=== PATIENT | female | born 1945 | race Caucasian/White ===

== ENCOUNTER 2019-10-26 02:15 | Inpatient (IN) | payer MEDICARE, OTHER ==
--- NOTE | 2019-10-26 02:21 | ED Physician Documentation ---
PD HPI ABD PAIN - Stated complaint Stated Complaint: ABD PAIN - History obtained from History obtained from: Patient - History of Present Illness Timing - onset: Enter time (22:30), Today Timing - details: Abrupt onset Pain level now: 3 Quality: Pain Location: All over / everywhere (predominantly right-sided) Improved by: Laying still Worsened by: Moving Associated symptoms: Nausea. No: Fever, Vomiting, Diarrhea, Constipation Similar symptoms before: Has not had sx before Recently seen: Not recently seen - Additional information Additional information: c/o rapid onset abdominal pain with nausea, vomiting. nausea has resolved. pain started while at home at rest approximately 10:30 PM tonight Review of Systems Constitutional: denies: Fever, Chills, Sweats Eyes: reports: Reviewed and negative Ears: reports: Foreign body Nose: reports: Reviewed and negative Throat: reports: Reviewed and negative Cardiac: reports: Reviewed and negative Respiratory: reports: Reviewed and negative GI: reports: Abdominal Pain, Nausea (resolved), Vomiting (resolved) : denies: Dysuria, Frequency Skin: denies: Rash Musculoskeletal: reports: Reviewed and negative Neurologic: reports: Reviewed and negative PD PAST MEDICAL HISTORY - Past Medical History Past Medical History: Yes Cardiovascular: Hypertension, High cholesterol - Past Surgical History General: Hiatal hernia repair - Present Medications Home Medications: Ambulatory Orders Medication Instructions Recorded Confirmed Calcium Carbonate [Tums (Calcium 500 mg PO DAILY 10/26/19 10/26/19 Carbonate 500mg)] Cholecalciferol (Vitamin D3) 2,000 units PO DAILY 10/26/19 10/26/19 [Vitamin D3] Ibuprofen 200 mg PO QPM 10/26/19 10/26/19 Losartan [Cozaar] 50 mg PO DAILY 10/26/19 10/26/19 Simvastatin 40 mg PO DAILY 10/26/19 10/26/19 - Allergies Allergies/Adverse Reactions: Allergies Allergy/AdvReac Type Severity Reaction Status Date / Time No Known Drug Allergies Allergy Verified 10/26/19 02:25 - Living Situation Living Situation: reports: With spouse/s.o. Living Arrangement: reports: At home - Social History Does the pt smoke?: No PD ED PE NORMAL - Vitals Vital signs reviewed: Yes - General General: Alert and oriented X 3, No acute distress, Well developed/nourished - HEENT HEENT: Moist mucous membranes - Neck Neck: Supple, no meningeal sign - Cardiac Cardiac: RRR, No murmur - Respiratory Respiratory: No respiratory distress, Clear bilaterally - Abdomen Abdomen: Soft, Non distended, Other (TTP periumbilicus and RLQ without rebound) - Back Back: No CVA TTP - Derm Derm: Normal color, Warm and dry, No rash - Extremities Extremities: No edema - Neuro Neuro: Alert and oriented X 3 Results - Vitals Vitals: Vital Signs - 24 hr 10/26/19 10/26/19 10/26/19 02:23 03:13 04:30 Temperature 37 C Heart Rate 107 H 106 H 105 H Respiratory 16 16 17 Rate Blood Pressure 181/84 H 145/71 H 133/74 H O2 Saturation 95 99 94 10/26/19 10/26/19 10/26/19 05:30 05:59 06:10 Temperature 37.5 C 37.7 C H Heart Rate 107 H 110 H 122 H Respiratory 18 16 18 Rate Blood Pressure 144/72 H 144/72 H 141/74 H O2 Saturation 94 92 91 L 10/26/19 10/26/19 10/26/19 06:12 06:38 07:01 Temperature 37.5 C Heart Rate 119 H 118 H Respiratory 16 18 Rate Blood Pressure 136/77 H 128/90 H O2 Saturation 95 95 94 10/26/19 10/26/19 07:41 08:30 Temperature 37.4 C Heart Rate 118 H 112 H Respiratory 17 17 Rate Blood Pressure 152/58 H 137/76 H O2 Saturation 93 Oxygen O2 Source Room air Oxygen Flow Rate 2 - Labs Labs: Laboratory Tests 10/26/19 10/26/19 10/26/19 02:47 02:58 02:58 WBC 4.0 L RBC 4.79 Hgb 15.0 Hct 44.9 MCV 93.7 MCH 31.3 H MCHC 33.4 RDW 11.9 L Plt Count 210 MPV 10.4 Neut # (Auto) 3.1 Lymph # (Auto) 0.7 L [place] # (Auto) 0.1 Eos # (Auto) 0.0 Baso # (Auto) 0.0 Absolute Nucleated RBC 0.00 Nucleated RBC % 0.0 Sodium 138 Potassium 3.7 Chloride 101 Carbon Dioxide 25 Anion Gap 12.0 BUN 19 Creatinine 0.6 Estimated GFR (MDRD) 98 Glucose 113 H Calcium 9.9 Total Bilirubin 1.0 AST 24 ALT 16 Alkaline Phosphatase 83 Total Protein 7.5 Albumin 4.6 Globulin 2.9 Albumin/Globulin Ratio 1.6 Lipase 27 Urine Color YELLOW Urine Clarity CLEAR Urine pH 5.5 Ur Specific [place] >=1.030 H Urine Protein NEGATIVE Urine Glucose (UA) NEGATIVE Urine Ketones TRACE Urine Occult Blood NEGATIVE Urine Nitrite NEGATIVE Urine Bilirubin NEGATIVE Urine Urobilinogen 0.2 (NORMAL) Ur Leukocyte Esterase SMALL H Urine RBC None Seen Urine WBC 4-5 Ur Squamous Epith Cells MANY Squamous H Urine Crystals 3-5 Calcium Oxalate Urine Bacteria Rare Urine Mucus Marked Strands Ur Microscopic Review INDICATED Urine Culture Comments NOT INDICATED - Rads (name of study) CT A/P Radiology: Prelim report reviewed, See rad report PD MEDICAL DECISION MAKING - ED course Complexity details: reviewed results, re-evaluated patient, considered differential, d/w patient ED course: CT A/P demonstrates appendicitis. D/W Dr. Redman (surgeon chief surgery), recommends IV zosyn and he will be in ED this morning to evaluate patient. Departure - Departure Disposition: ED Transfer to [facility] Clinical Impression: Appendicitis Condition: Stable
[2019-10-26 03:05] LABS: BASOPHILS % (AUTO) 0.5 %; EOSINOPHILS % (AUTO) 0.8 %; LYMPHOCYTES # (AUTO) 0.7 10^3/uL (1.5-3.5); LYMPHOCYTES % (AUTO) 17.4 %; MEAN CORPUSCULAR HEMOGLOBIN 31.3 pg (27.0-31.0); MEAN CORPUSCULAR HGB CONC 33.4 g/dL (32.0-36.0); MEAN CORPUSCULAR VOLUME 93.7 fL (81.0-99.0); MEAN PLATELET VOLUME 10.4 fL (7.9-10.8); MONOCYTES # (AUTO) 0.1 10^3/uL (0.0-1.0); MONOCYTES % (AUTO) 2.5 %; NEUTROPHILS # (AUTO) 3.1 10^3/uL (1.5-6.6); NEUTROPHILS % (AUTO) 78.8 %; PLT - PLATELET COUNT 210 10^3/uL (130-450); RED BLOOD COUNT 4.79 10^6/uL (4.20-5.40); RED CELL DISTRIBUTION WIDTH 11.9 % (12.0-15.0)
[2019-10-26 03:05] LABS: BILIRUBIN,URINE NEGATIVE (NEGATIVE); GLUCOSE, URINE (UA) NEGATIVE (NEGATIVE); KETONES,URINE (UA) TRACE mg/dL (NEGATIVE); LEUKOCYTE ESTERASE, URINE SMALL (NEGATIVE); NITRITE,URINE NEGATIVE (NEGATIVE); OCCULT BLOOD,URINE NEGATIVE (NEGATIVE); PH,URINE 5.5 PH (5.0-7.5); PROTEIN,URINE NEGATIVE (NEGATIVE); UROBILINOGEN,URINE 0.2 (NORMAL) E.U./dL (NORMAL)
[2019-10-26 03:06] LABS: CLARITY,URINE CLEAR (CLEAR)
[2019-10-26 03:16] LABS: ALBUMIN 4.6 g/dL (3.2-5.5); ALBUMIN/GLOBULIN RATIO 1.6 (1.0-2.2); CALCIUM 9.9 mg/dL (8.5-10.3); CREATININE 0.6 mg/dL (0.4-1.0); TOTAL PROTEIN 7.5 g/dL (6.7-8.2)
[2019-10-26] MEDS ORDERED: IOVERSOL 320 100 ML VIAL IVP ONE ×2 (03:16→03:46)
[2019-10-26 03:18] LABS: BACTERIA,URINE Rare /HPF (None Seen); MUCUS,URINE Marked Strands; RBC,URINE None Seen /HPF (0-5); SQUAMOUS EPITHELIAL CELL,UR MANY Squamous (<= Few)
[2019-10-26 03:19] LABS: CRYSTALS,URINE 3-5 Calcium Oxalate /LPF
--- NOTE | 2019-10-26 04:08 | CT Report ---
Reason: abdominal pain Procedure Date: 10/26/2019 Accession Number: [id number] / [id number] Procedure: CT - Abdomen/Pelvis W CPT Code: Final Report FULL RESULT: EXAM: CT ABDOMEN AND PELVIS EXAM DATE: 10/26/2019 03:43 AM. CLINICAL HISTORY: Abdominal pain. COMPARISONS: None. TECHNIQUE: Routine helical CT imaging was performed through the abdomen and pelvis. IV contrast: 100 mL of Optiray 320. Enteric contrast: No. Reconstructions: Coronal and sagittal. In accordance with CT protocol optimization, one or more of the following dose reduction techniques were utilized for this exam: automated exposure control, adjustment of mA and/or KV based on patient size, or use of iterative reconstructive technique. FINDINGS: Lung Bases: Right basilar atelectasis. Small hiatal hernia. Liver: Likely hemangiomas at the dome and in the posterior right lobe. Gallbladder/Bile Ducts: Unremarkable. Spleen: Normal. Pancreas: Normal. Adrenal Glands: Normal. Kidneys: Normal. No masses or hydronephrosis. Peritoneal Cavity/Bowel: Inflammation in the right lower quadrant, with dilation of the tip of the appendix, measuring 13 mm. No definite perforation or abscess formation. No bowel obstruction. Colonic diverticulosis. Pelvic Organs: Small amount of free fluid in the pelvis. 2.8 cm left adnexal cyst. No pelvic adenopathy. Vasculature: No aneurysms or other significant abnormality. Bones: Degenerative changes. Other: None. IMPRESSION: Acute appendicitis, predominantly at the tip. No perforation or abscess formation. 2.9 cm left adnexal cyst, likely ovarian in origin. Consider further evaluation with pelvic ultrasound when the acute episode has resolved. RADIA
[2019-10-26] MEDS ORDERED: PIPERACILLIN/TAZOBACTAM 3.375 GM in SODIUM CHLORIDE 0.9% MINIBAG 100 ML IV STA (05:47)
[2019-10-26] MEDS ORDERED: KETOROLAC 30 MG/ML VIAL IVP STA (08:07)
--- NOTE | 2019-10-26 08:21 | CONSULTATION NOTE ---
Referring Provider Name of Referring Provider:: Dr. Juarez Consult Date: 10/26/19 Chief Complaint - Chief Complaint Chief Complaint: abd pain History of Present Illness - Admitted From Admitted From:: ER - History Obtained From Records Reviewed: yes History obtained from: pt Exam Limitations: none - History of Present Illness HPI Comment/Other: 74 yo female with sudden onset of severe generalized sharp stabbing abd pain, worse on the right side, which began at 2230 hrs yesterday evening. There was nausea but no vomiting, no fever, chills, change in bowel habits, melena, hematochezia, respiratory or urinary sx. She believes she may have had a milder episode approx 5 months ago which resolved spontaneously over 48 hours. Pain is better when she lies still. No recent wt loss. +FH CRC in father in his 80s. Her most recent colonoscopy was approximately one year ago where diverticulosis was noted. Her pain has improved somewhat since arrival in the ER at approx 0200, and now is described as a dull ache. Evaluation in the ER was notable for nl CBC, CMP, and UA and abd/pelvic CT showing an enlarged, inflamed distal appendix measuring 13 mm in size, along with a 2.7 cm left cystic adnexal mass for which f/u US was recommended. Surgical consultation was requested. 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 HEENT: reports: Cataracts, Other (partial corneal transplants OU) - Family & Social History Family History Comment/Other: Colon cancer in father in his 80s - Substance History Use: Uses substance without health or social issues: Alcohol (2 glasses wine per night) - POLST Patient has POLST: No Meds/Allgy - Home Medications Home Medications: Ambulatory Orders Medication Instructions Recorded Confirmed Calcium Carbonate [Tums (Calcium 500 mg PO DAILY 10/26/19 10/26/19 Carbonate 500mg)] Cholecalciferol (Vitamin D3) 2,000 units PO DAILY 10/26/19 10/26/19 [Vitamin D3] Ibuprofen 200 mg PO QPM 10/26/19 10/26/19 Losartan [Cozaar] 50 mg PO DAILY 10/26/19 10/26/19 Simvastatin 40 mg PO DAILY 10/26/19 10/26/19 - Allergies Allergies/Adverse Reactions: Allergies Allergy/AdvReac Type Severity Reaction Status Date / Time No Known Drug Allergies Allergy Verified 10/26/19 02:25 Review of Systems - Constitutional Constitutional: denies: Fever, Chills, Weight loss - Cardiovascular Cariovascular: denies: Palpitations, Chest pain - Respiratory Respiratory: denies: Cough - Gastrointestinal Gastrointestinal: reports: Abdominal pain, Nausea, Poor appetite. denies: Constipation, Diarrhea, Change in bowel habits, Rectal bleeding, Black stools, Bloody stools, Vomiting, Bile emesis, Coffee grounds emesis - Genitourinary Genitourinary: denies: Dysuria - Hematologic/Lymphatic Hematologic/Lymphatic: denies: Bruising, Blood clots, Bleeding tendencies - All Other Systems All Other Systems: reports: Reviewed and negative (or covered in HPI/PMH) Exam - Vital Signs Reviewed Vital Signs: Yes Vital Signs: Vital Signs x48h Temp Pulse Resp BP Pulse Ox 10/26/19 07:41 37.4 C 118 H 17 152/58 H 10/26/19 07:01 118 H 18 128/90 H 94 10/26/19 06:38 37.5 C 119 H 16 136/77 H 95 10/26/19 06:12 95 10/26/19 06:10 37.7 C H 122 H 18 141/74 H 91 L 10/26/19 05:59 37.5 C 110 H 16 144/72 H 92 10/26/19 05:30 107 H 18 144/72 H 94 10/26/19 04:30 105 H 17 133/74 H 94 10/26/19 03:13 106 H 16 145/71 H 99 10/26/19 02:23 37 C 107 H 16 181/84 H 95 - Physical Exam General Appearance: positive: Alert, Moderate distress Eyes Bilateral: positive: No scleral icterus ENT: positive: Dry mucous membranes Neck: positive: Nml inspection, Thyroid nml, No JVD, Trachea midline, Other (carotid upstrokes appear normal). negative: Lymphadenopathy (R), Lymphadenopathy (L) Respiratory: positive: Chest non-tender, No respiratory distress, Rales (faint right base) Cardiovascular: positive: Regular rate & rhythm, Tachycardia, Systolic murmur. negative: JVD present, Gallop/S3, Gallop/S4 Abdomen: positive: Tenderness (Diffuse tenderness in RUQ, RLQ, LLQ with peritoneal signs, maximal in RLQ), Guarding, Rebound, Abnml bowel sounds ( hypoactive), Other (laparoscopic surgical scars). negative: Hepatomegaly, Splenomegaly, Mass Back: positive: Nml inspection. negative: CVA tenderness (R), CVA tenderness (L) Skin: positive: Color nml, No rash, Warm, Dry Extremities: positive: Non-tender, Nml appearance, No pedal edema. negative: Calf tenderness Neurologic/Psychiatric: positive: Oriented x3 Conclusion and Plan - Lab Results Laboratory Results 10/26/19 02:58: Sodium 138, Potassium 3.7, Chloride 101, Carbon Dioxide 25, Anion Gap 12.0, BUN 19, Creatinine 0.6, Estimated GFR (MDRD) 98, Glucose 113 H, Calcium 9.9, Total Bilirubin 1.0, AST 24, ALT 16, Alkaline Phosphatase 83, Total Protein 7.5, Albumin 4.6, Globulin 2.9, Albumin/Globulin Ratio 1.6, Lipase 27 10/26/19 02:58: WBC 4.0 L, RBC 4.79, Hgb 15.0, Hct 44.9, MCV 93.7, MCH 31.3 H, MCHC 33.4, RDW 11.9 L, Plt Count 210, MPV 10.4, Neut # (Auto) 3.1, Lymph # (Auto) 0.7 L, [place] # (Auto) 0.1, Eos # (Auto) 0.0, Baso # (Auto) 0.0, Absolute Nucleated RBC 0.00, Nucleated RBC % 0.0 10/26/19 02:47: Urine Color YELLOW, Urine Clarity CLEAR, Urine pH 5.5, Ur Specific [place] >=1.030 H, Urine Protein NEGATIVE, Urine Glucose (UA) NEGATIVE, Urine Ketones TRACE, Urine Occult Blood NEGATIVE, Urine Nitrite NEGATIVE, Urine Bilirubin NEGATIVE, Urine Urobilinogen 0.2 (NORMAL), Ur Leukocyte Esterase SMALL H, Urine RBC None Seen, Urine WBC 4-5, Ur Squamous Epith Cells MANY Squamous H, Urine Crystals 3-5 Calcium Oxalate, Urine Bacteria Rare, Urine Mucus Marked Strands, Ur Microscopic Review INDICATED, Urine Culture Comments NOT INDICATED - Diagnostic Imaging Results Diagnostic Imaging Results: positive: Final report reviewed, Read independently Diagnostic Imaging Results Comments: See HPI - EKG Results EKG Interpreted Independently: No EKG Findings: Sinus tachycardia - Diagnosis Diagnosis: 1. Acute abdomen, likely due to appendicitis; clinical picture concerning for complicated disease despite like of findings on CT to suggest this. 2. New systolic heart murmur, concerning for aortic stenosis. 3. Sinus tachycardia, likely due to pain, poss sepsis, vol depletion - Plan Plan: Initiate therapy with broad spectrum antibiotic therapy, IVF bolus and continuous infusion; IV analgesia, CXR, hospitalist consultation, consider echocardiogram to assess for aortic stenosis. Proceed with laparoscopic appendectomy after medical clearance and adequate resuscitation has been accomplished. Discussed in detail with pt, who agrees with this plan. Dr. Duran will be performing the surgery after the above has occured.
[2019-10-26] MEDS ORDERED: LACTATED RINGERS 500 ML IV SCH (09:00)
[2019-10-26] MEDS ORDERED: LACTATED RINGERS 1,000 ML IV SCH (09:00)
--- NOTE | 2019-10-26 09:15 | XRAY Report ---
Reason: pre op abd pain Procedure Date: 10/26/2019 Accession Number: [id number] / [id number] Procedure: XR - Chest 2 View X-Ray CPT Code: 86407 Final Report FULL RESULT: EXAM: CHEST RADIOGRAPHY EXAM DATE: 10/26/2019 09:06 AM. CLINICAL HISTORY: Pre op abd pain. COMPARISON: None. TECHNIQUE: 2 views. FINDINGS: Lungs/Pleura: Lung volumes are low. Minimal bibasal opacity probably atelectasis. No focal pulmonary consolidation, significant pleural effusion, or evidence of pneumothorax. Mediastinum: Heart size is normal. Mild to tortuous, calcified aorta. Other: Chronic appearing mild lower thoracic compression deformity. IMPRESSION: No convincing acute cardiopulmonary abnormality. RADIA
--- NOTE | 2019-10-26 10:06 | CONSULTATION NOTE ---
Referring Provider Name of Referring Provider:: Dr. Best Redman Consult Date: 10/26/19 Chief Complaint - Chief Complaint Chief Complaint: Abdominal pain History of Present Illness - Admitted From Admitted From:: Home - History Obtained From Records Reviewed: Yes History obtained from: Patient, Spouse, General Surgery, EMR - History of Present Illness HPI Comment/Other: This is a 74-year-old female with a past medical history significant for hypertension hyperlipidemia who presents to emergency department complaining of right lower quadrant abdominal pain. She had associated nausea but no vomiting. She also denied any fevers or chills. She was found to have appendicitis on CT of the abdomen and pelvis and general surgery was consulted for intervention. On their exam, she is found to have a cardiac murmur and medicine was consulted for preop evaluation. Patient reports she has no prior cardiac history to her knowledge. She is never been told that she had a murmur in the past. She denies any history of heart failure, coronary artery disease, arrhythmias. She states she is relatively active and is able to walk up a flight of stairs without chest pain or dyspnea. She currently reports no chest pain or dyspnea but does continue to have some right lower quadrant abdominal pain. Her only medications are losartan and simvastatin. 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 Social History Notes: Lives with her at home. She did smoke in the past but quit over 40 years ago. She drinks 2 glasses of white wine a day. - Substance History Use: Uses substance without health or social issues: Alcohol (2 glasses wine per night) - POLST Patient has POLST: No Meds/Allgy - Home Medications Home Medications: Ambulatory Orders Medication Instructions Recorded Confirmed Calcium Carbonate [Tums (Calcium 500 mg PO DAILY 10/26/19 10/26/19 Carbonate 500mg)] Cholecalciferol (Vitamin D3) 2,000 units PO DAILY 10/26/19 10/26/19 [Vitamin D3] Ibuprofen 200 mg PO QPM 10/26/19 10/26/19 Losartan [Cozaar] 50 mg PO DAILY 10/26/19 10/26/19 Simvastatin 40 mg PO DAILY 10/26/19 10/26/19 - Allergies Allergies/Adverse Reactions: Allergies Allergy/AdvReac Type Severity Reaction Status Date / Time No Known Drug Allergies Allergy Verified 10/26/19 02:25 Review of Systems - Constitutional Constitutional: reports: Poor appetite. denies: Fever, Chills - Cardiovascular Cariovascular: denies: Palpitations, Chest pain, Exertional dyspnea, Decr. exercise tolerance - Respiratory Respiratory: denies: SOB at rest, SOB with exertion - Gastrointestinal Gastrointestinal: reports: Abdominal pain, Nausea. denies: Vomiting Exam - Vital Signs Reviewed Vital Signs: Yes Vital Signs: Vital Signs x48h Temp Pulse Resp BP Pulse Ox 10/26/19 09:30 108 H 16 142/74 H 93 10/26/19 08:30 112 H 17 137/76 H 93 10/26/19 07:41 37.4 C 118 H 17 152/58 H 10/26/19 07:01 118 H 18 128/90 H 94 10/26/19 06:38 37.5 C 119 H 16 136/77 H 95 10/26/19 06:12 95 10/26/19 06:10 37.7 C H 122 H 18 141/74 H 91 L 10/26/19 05:59 37.5 C 110 H 16 144/72 H 92 10/26/19 05:30 107 H 18 144/72 H 94 10/26/19 04:30 105 H 17 133/74 H 94 10/26/19 03:13 106 H 16 145/71 H 99 10/26/19 02:23 37 C 107 H 16 181/84 H 95 - Physical Exam General Appearance: positive: No acute distress, Alert Eyes Bilateral: positive: Normal inspection, Conjunctivae nml ENT: positive: ENT inspection nml Neck: positive: Nml inspection Respiratory: positive: No respiratory distress. negative: Wheezes, Rales, Rhonchi Cardiovascular: positive: Tachycardia, Systolic murmur. negative: Irregularly irregular, Bradycardia Abdomen: positive: Tenderness (Right lower quadrant most prominently but also diffusely.), Guarding. negative: Non-tender Skin: positive: No rash, Warm, Dry Extremities: positive: Full ROM, No pedal edema Neurologic/Psychiatric: positive: Oriented x3. negative: Disoriented to person, Disoriented to place, Disoriented to time Conclusion/Plan - Diagnosis Diagnosis: 1) Preoperative evaluation. 2) Cardiac murmur. 3) Appendictis - Plan Plan: She appears septic from her appendicitis and surgery appears to be warranted at the moment. It is reasonable to obtain an echocardiogram prior to surgery to evaluate for aortic stenosis given her cardiac murmur on exam. I have called the field service technician poultry and they will be obtaining a stat echocardiogram. If she does have significant aortic stenosis, the decision was made by general surgery and anesthesia whether to proceed with intervention or transfer to a higher level of care. She is otherwise optimized from medical aspect for intervention. Her EKG is without ischemic changes and she is able to function greater than 4 METS. Her Gonzalez risk score for a perioperative cardiac event is 0.1%. She does appear dry on exam and further hydration with IV fluids is recommended. Agree with IV antibiotics for appendicitis. - Lab Results Lab results reviewed: Yes Fish Bones: 10/26/19 02:58 10/26/19 02:58 - Diagnostic Imaging Results Diagnostic Imaging Results: positive: Final report reviewed - EKG Results EKG Interpreted Independently: Yes EKG Findings: EKG shows sinus tachycardia without any obvious ST segment changes.
--- NOTE | 2019-10-26 11:27 | ANESTHESIA ---
Pre-Anesthesia VS, & Labs - Diagnosis Diagnosis 1) Preoperative valuation 2) Cardiac murmur 3) Appendictis - Procedure Lap appy Vital Signs: Temp Pulse Resp BP Pulse Ox 37.4 C 109 H 16 140/59 H 92 10/26/19 07:41 10/26/19 10:30 10/26/19 10:30 10/26/19 10:30 10/26/19 10:30 Height 5 ft 1 in Weight (kg) 64.41 kg Body Mass Index 26.8 - NPO >8 hours - Is Patient ?: Not Applicable - Lab Results Current Lab Results: Laboratory Tests 10/26/19 02:58: Sodium 138, Potassium 3.7, Chloride 101, Carbon Dioxide 25, Anion Gap 12.0, BUN 19, Creatinine 0.6, Estimated GFR (MDRD) 98, Glucose 113 H, Calcium 9.9, Total Bilirubin 1.0, AST 24, ALT 16, Alkaline Phosphatase 83, Total Protein 7.5, Albumin 4.6, Globulin 2.9, Albumin/Globulin Ratio 1.6, Lipase 27 10/26/19 02:58: WBC 4.0 L, RBC 4.79, Hgb 15.0, Hct 44.9, MCV 93.7, MCH 31.3 H, MCHC 33.4, RDW 11.9 L, Plt Count 210, MPV 10.4, Neut # (Auto) 3.1, Lymph # (Auto) 0.7 L, [place] # (Auto) 0.1, Eos # (Auto) 0.0, Baso # (Auto) 0.0, Absolute Nucleated RBC 0.00, Nucleated RBC % 0.0 Lab results reviewed: Yes Fish Bones: 10/26/19 02:58 10/26/19 02:58 Home Medications and Allergies Home Medications: Ambulatory Orders Calcium Carbonate [Tums (Calcium Carbonate 500mg)] 500 mg PO DAILY 10/26/19 Cholecalciferol (Vitamin D3) [Vitamin D3] 2,000 units PO DAILY 10/26/19 Ibuprofen 200 mg PO QPM 10/26/19 Losartan [Cozaar] 50 mg PO DAILY 10/26/19 Simvastatin 40 mg PO DAILY 10/26/19 Active Medications Lactated Ringer's (Lr) 500 mls @ 0 mls/hr IV .Q0M AYUSH Last Infusion: 10/26/19 09:55 Dose: Infused Calcium Carbonate [Tums (Calcium Carbonate 500mg)] 500 mg PO DAILY 10/26/19 Cholecalciferol (Vitamin D3) [Vitamin D3] 2,000 units PO DAILY 10/26/19 Ibuprofen 200 mg PO QPM 10/26/19 Losartan [Cozaar] 50 mg PO DAILY 10/26/19 Simvastatin 40 mg PO DAILY 10/26/19 Allergies/Adverse Reactions: Allergies Allergy/AdvReac Type Severity Reaction Status Date / Time No Known Drug Allergies Allergy Verified 10/26/19 02:25 Anes History & Medical History - Anesthetic History Anesthesia Complications: reports: No previous complications Family history of Anesthesia Complications: Denies Family history of Malignant Hyperthermia: Denies - Medical History Cardiovascular: reports: Hypertension, High cholesterol, Murmur Pulmonary: reports: None Gastrointestinal: reports: Hiatal hernia (Hiatal hernia repair two years ago), Colon polyps, Other (colonoscopy in 2019 showing tics) Urinary: reports: None Neuro: reports: None Musculoskeletal: reports: None Endocrine/Autoimmune: reports: None Blood Disorders: reports: None Skin: reports: None Smoking Status: Former smoker Psychosocial: reports: No issues indicated - Surgical History General: Hiatal hernia repair Eyes Ears Nose Throat (EENT): Cataracts, Other (partial corneal transplants OU) Gynecologic: Tubal ligation Exam General: Alert, Oriented x3, Cooperative, No acute distress Dental: TMJ Mouth Opening: Greater than 4 Fingerbreadths Neck Mobility: Normal Mallampati classification: I Thyromental Distance: greater than 6 cm Neurological: Normal speech Mental/Cognitive Status: Alert/Oriented X3 Cognitive Status: Within normal limits Plan Anesthesia Type: General Consent for Procedure(s) Verified and Reviewed: Yes Code Status: Attempt Resuscitation ASA classification: 2-Mild systemic disease Is this case an emergency?: Yes
[2019-10-26] MEDS ORDERED: LACTATED RINGERS 1,000 ML IV ONE (11:30)
[2019-10-26] MEDS ORDERED: BUPIVACAINE 0.5% PF 30 ML VIAL ONE (11:47)
[2019-10-26] MEDS ORDERED: LIDOCAINE 1%-EPI 1:100000 20 ML MDV ONE (11:47)
[2019-10-26] MEDS ORDERED: PIPERACILLIN/TAZOBACTAM 3.375 GM in SODIUM CHLORIDE 0.9% MINIBAG 100 ML IV ONE (12:22)
[2019-10-26] MEDS ORDERED: BUPIVACAINE 0.5% PF 30 ML VIAL SUBQ ONE ×2 (12:49)
[2019-10-26] MEDS ORDERED: LIDOCAINE 1%-EPI 1:100000 30 ML MDV SUBQ ONE ×2 (12:49)
--- NOTE | 2019-10-26 13:08 | OPERATIVE REPORT ---
Operative Report - General Planned Procedure: Laparoscopic appendectomy Pre-Op Diagnosis: Perforated appendicitis with peritonitis Procedure Performed: Laparoscopic appendectomy with drain placement Post Op Diagnosis: Perforated appendicitis with peritonitis - Procedure Note Primary Surgeon: Roger Anesthesia Provider: CARLOS Aguirre Anesthesia Technique: General ET tube, Local Pathology: Appendix to pathology in formalin IV Fluids (mL): 900 Estimated Blood Loss (mL): 20 Drain/Tube Type: Hardeep drain (19 F Hardeep drain in the right pericolic gutter) Indications: Acute appendicitis Findings: Right lower quadrant phlegmon with palmer pus within the abdominal cavity and around the cecum Complications: None apparent - Other Other Information/Narrative: After obtaining informed consent, the patient is brought to the operating room and placed in the supine position on the operating table. Following successful induction of general endotracheal anesthesia, appropriate padding of all bony prominences, and placement of appropriate monitors, the abdomen was prepped and draped in the standard surgical fashion. A timeout was held per scope protocol. All elements of the surgical safety checklist were followed before, during, and after the procedure. Following infiltration with local anesthetic to create a field block, an incisi on was created inferior to the umbilicus and carried down through the skin and subcutaneous tissue to reveal the fascia below. 2-0 Vicryl retention sutures were placed on either side of the midline and the abdomen was entered under direct vision using a 15 blade scalpel. A 10 mm blunt Ibrahim balloon trocar was placed in the abdominal cavity and it was insufflated to 15 mmHg pressure. The patient was placed in Trendelenburg position with the left side rotated toward the floor. The camera was placed in the abdominal cavity and we immediately visualized the cecum in the right lower quadrant. Palmer pus was noted in the right pericolic gutter. The appendix was identified in the retrocecal position with an associated phlegmon and gross purulence around the appendix and tracking up and down the right pericolic gutter. The appendix was grasped and elevated revealing its attachment to the cecum. The mesentery was notably thickened and the wall of the appendix appeared necrotic. A window was created in the mesoappendix at this location. A laparoscopic stapling device was used to ligate the appendix and liberated from its attachment to the cecum. An additional load of the device were used to divide its mesentery.The appendix was placed in an Endo Catch bag and removed via the umbilical port with a camera in the epigastric position. The camera was replaced in the operative site e xamined. It was irrigated with warm saline solution and aspirated free of all fluid and particulate matter. A 19 F Hardeep drain was placed in the necrotic omental pocket and laced into the right pericolic gutter to be brought out in the right upper quadrant. The was sewn into place. The table was flattened and the abdomen evaluated once again. The trochars were removed under direct vision and abdomen was desufflated. The umbilical incision was closed with interrupted Vicryl suture and Monocryl stitches were placed in the skin. All sponge, needles, and instrument counts were correct at the conclusion of the case. The patient was allowed to wake from anesthesia without difficulty and taken to the postanesthesia care unit in good condition.
[2019-10-26] MEDS ORDERED: ONDANSETRON 4 MG/2 ML VIAL IVP PRN (13:16)
[2019-10-26] MEDS ORDERED: SODIUM CHLORIDE FLUSH 0.9% 10 ML SYRINGE IVP PRN (13:16)
[2019-10-26] MEDS ORDERED: METOCLOPRAMIDE 10 MG/2 ML VIAL IVP PRN (13:16)
[2019-10-26] MEDS ORDERED: HYDROmorphone PCA 20MG/100ML IV PRN (13:34)
[2019-10-26] MEDS: ACETAMINOPHEN 1,000 MG/100 ML 100 ML IV SCH ×2 (14:08→20:05)
[2019-10-26] MEDS: LACTATED RINGERS 1,000 ML IV SCH ×2 (14:08→23:20)
[2019-10-26] MEDS: PANTOPRAZOLE 40 MG VIAL IVP SCH (14:33)
[2019-10-26] MEDS: metroNIDAZOLE 500 MG/100 ML 500 MG/100 ML BAG IV SCH ×2 (14:33→21:33)
[2019-10-26] MEDS ORDERED: SODIUM CHLORIDE FLUSH 0.9% 10 ML SYRINGE IVP SCH (17:00)
[2019-10-26] MEDS: PIPERACILLIN/TAZOBACTAM 3.375 GM in SODIUM CHLORIDE 0.9% MINIBAG 100 ML IV SCH (18:26)
[2019-10-26] MEDS: SODIUM CHLORIDE FLUSH 0.9% 10 ML SYRINGE IVP SCH (18:26)
[2019-10-27] MEDS: PIPERACILLIN/TAZOBACTAM 3.375 GM in SODIUM CHLORIDE 0.9% MINIBAG 100 ML IV SCH ×5 (00:17→23:47)
[2019-10-27] MEDS: SODIUM CHLORIDE FLUSH 0.9% 10 ML SYRINGE IVP SCH ×4 (00:18→23:56)
[2019-10-27] MEDS: KETOROLAC 15 MG/ML VIAL IVP PRN ×4 (00:18→18:58)
[2019-10-27] MEDS: LACTATED RINGERS 1,000 ML IV SCH ×3 (01:31→23:46)
[2019-10-27] MEDS: ACETAMINOPHEN 1,000 MG/100 ML 100 ML IV SCH ×4 (01:38→20:17)
[2019-10-27 05:17] LABS: BASOPHILS % (AUTO) 0.3 %; EOSINOPHILS % (AUTO) 0.3 %; HGB - HEMOGLOBIN 11.4 g/dL (12.0-16.0); LYMPHOCYTES # (AUTO) 1.2 10^3/uL (1.5-3.5); LYMPHOCYTES % (AUTO) 15.8 %; MEAN CORPUSCULAR HEMOGLOBIN 31.6 pg (27.0-31.0); MEAN CORPUSCULAR HGB CONC 33.4 g/dL (32.0-36.0); MEAN CORPUSCULAR VOLUME 94.5 fL (81.0-99.0); MEAN PLATELET VOLUME 10.6 fL (7.9-10.8); MONOCYTES # (AUTO) 0.3 10^3/uL (0.0-1.0); MONOCYTES % (AUTO) 3.9 %; NEUTROPHILS # (AUTO) 6.1 10^3/uL (1.5-6.6); NEUTROPHILS % (AUTO) 79.3 %; PLT - PLATELET COUNT 158 10^3/uL (130-450); RED BLOOD COUNT 3.61 10^6/uL (4.20-5.40); RED CELL DISTRIBUTION WIDTH 12.3 % (12.0-15.0); WHITE BLOOD COUNT 7.7 x10^3/uL (4.8-10.8)
[2019-10-27 05:27] LABS: ALBUMIN 3.2 g/dL (3.2-5.5); ALBUMIN/GLOBULIN RATIO 1.3 (1.0-2.2); BILIRUBIN,TOTAL 0.8 mg/dL (0.2-1.0); CALCIUM 8.3 mg/dL (8.5-10.3); CREATININE 0.6 mg/dL (0.4-1.0); TOTAL PROTEIN 5.6 g/dL (6.7-8.2)
[2019-10-27] MEDS: metroNIDAZOLE 500 MG/100 ML 500 MG/100 ML BAG IV SCH ×3 (05:52→21:09)
[2019-10-27] MEDS: SODIUM CHLORIDE FLUSH 0.9% 10 ML SYRINGE IVP PRN ×2 (05:56→12:24)
[2019-10-27] MEDS: PANTOPRAZOLE 40 MG VIAL IVP SCH (05:57)
[2019-10-27] MEDS: ENOXAPARIN 40 MG/0.4 ML SYRINGE SUBQ SCH (09:22)
--- NOTE | 2019-10-27 14:25 | PROVIDER PROGRESS NOTE ---
Subjective - General Admit Date: 10/26/19 Procedure Date: 10/26/19 Post Op Days: 1 Procedure Performed: Laparoscopic Appendectomy with drain placement - Review of Systems Wound/Incisions: positive: Healing well Drain Type: Hardeep Drain Output Description: approx 60 ccs since OR - cloudy and sanguinous General: positive: Fever, Appetite. negative: Malaise, Chills HEENT: positive: No symptoms Pulmonary: positive: No symptoms, Pleuritic chest pain Gastrointestinal: negative: Nausea, Vomiting Genitourinary: positive: No symptoms Musculoskeletal: positive: No symptoms Skin: positive: No symptoms All Other Systems: positive: Reviewed and negative (or covered in HPI/PMH) Objective - Patient Data Vital Signs: Vital Signs x48h Temp Pulse Resp BP Pulse Ox 10/27/19 08:05 37.1 C 91 18 133/65 H 92 Weight: Weight 10/25/19 10/26/19 10/27/19 23:59 23:59 23:59 Weight (kg) 64.41 kg Intake & Output: Intake and Output Totals x24h 10/25/19 10/26/19 10/27/19 23:59 23:59 23:59 Intake Total 1490 4550 Output Total 290 90 Balance 1200 4460 - Lab Results Lab Results: 10/27/19 05:00 10/27/19 05:00 Other Lab Results: Lab Results x24hrs 10/27/19 10/27/19 Range/Units 05:00 05:00 WBC 7.7 (4.8-10.8) x10^3/uL RBC 3.61 L (4.20-5.40) 10^6/uL Hgb 11.4 L (12.0-16.0) g/dL Hct 34.1 L (37.0-47.0) % MCV 94.5 (81.0-99.0) fL MCH 31.6 H (27.0-31.0) pg MCHC 33.4 (32.0-36.0) g/dL RDW 12.3 (12.0-15.0) % Plt Count 158 (130-450) 10^3/uL MPV 10.6 (7.9-10.8) fL Neut # (Auto) 6.1 (1.5-6.6) 10^3/uL Lymph # (Auto) 1.2 L (1.5-3.5) 10^3/uL Rutherford # (Auto) 0.3 (0.0-1.0) 10^3/uL Eos # (Auto) 0.0 (0.0-0.7) 10^3/uL Baso # (Auto) 0.0 (0.0-0.1) 10^3/uL Absolute Nucleated RBC 0.00 x10^3/uL Nucleated RBC % 0.0 /100WBC Sodium 137 (135-145) mmol/L Potassium 3.4 L (3.5-5.0) mmol/L Chloride 104 (101-111) mmol/L Carbon Dioxide 26 (21-32) mmol/L Anion Gap 7.0 (6-13) BUN 16 (6-20) mg/dL Creatinine 0.6 (0.4-1.0) mg/dL Estimated GFR (MDRD) 98 (>89) Glucose 112 H (70-100) mg/dL Calcium 8.3 L (8.5-10.3) mg/dL Total Bilirubin 0.8 (0.2-1.0) mg/dL AST 18 (10-42) IU/L ALT 16 (10-60) IU/L Alkaline Phosphatase 53 (42-121) IU/L Total Protein 5.6 L (6.7-8.2) g/dL Albumin 3.2 (3.2-5.5) g/dL Globulin 2.4 (2.1-4.2) g/dL Albumin/Globulin Ratio 1.3 (1.0-2.2) - Current Medications Current Medications: Current Medications Generic Name Dose Route Start Last Admin Trade Name Taqueriaq PRN Reason Stop Dose Admin Enoxaparin Sodium 40 mg 10/27/19 09:00 10/27/19 09:22 Lovenox SUBQ 40 mg DAILY AYUSH Administration Lactated Ringer's 1,000 mls @ 125 mls/hr 10/26/19 14:00 10/27/19 11:16 Lr IV 125 mls/hr .Q8H AYUSH Administration Metronidazole 500 mg in 100 mls @ 100 mls/hr 10/26/19 14:00 10/27/19 14:14 Flagyl 500 Mg/100 Ml IV 100 mls/hr Q8HR AYUSH Administration Acetaminophen 100 mls @ 400 mls/hr 10/26/19 14:00 10/27/19 14:10 Ofirmev IV Infused Q6H AYUSH Infusion Piperacillin Sod/Tazobactam 100 mls @ 200 mls/hr 10/26/19 18:00 10/27/19 13:14 Sod 3.375 gm/ Sodium Chloride IV Infused Q6HR AYUSH Infusion Ketorolac Tromethamine 15 mg 10/26/19 13:16 10/27/19 12:23 Toradol Inj (15mg) IVP 10/31/19 13:15 15 mg Q6H PRN Administration PAIN Pantoprazole Sodium 40 mg 10/26/19 14:00 10/27/19 05:57 Protonix IVP 40 mg QDAC AYUSH Administration Sodium Chloride 10 ml 10/26/19 17:00 10/27/19 12:43 Normal Saline Flush 0.9% IVP Not Given 0100,0900,1700 AYUSH Sodium Chloride 10 ml 10/26/19 13:12 10/27/19 12:24 Normal Saline Flush 0.9% IVP 10 ml PRN PRN Administration NEEDED PER PROVIDER ORDERS ABX Reporting Has patient been on IV antibiotics over the past 48 hours?: Yes Impression/Plan - Problem List Problem List: Continue IV antibiotic. Advance diet Ambulate in the halls Recheck labs on Monday
[2019-10-27] MEDS ORDERED: oxyCODONE 5 MG TABLET PO PRN (14:37)
--- NOTE | 2019-10-27 16:16 | PHARMACY PROGRESS NOTE ---
- Best Possible Medication History Admit Date and Time: 10/26/19 1312 Processed by: Pharmacy Medication History completed: Yes Patient Interview: Completed Secondary Source(s): Pharmacy records, Insurance records As the person ultimately responsible for medication therapy, providers are able to order a medication from an existing home medication list in [facility] via the "Reconcile Routine" prior to Confirmation of that medication by help desk support specialist. Such practice is discouraged except when the physician, in their clinical judgment, deems that a medical need exists for a medication without regard to previous use.
[2019-10-27] MEDS: TIMOLOL EYE DROP RIGHTEYE SCH (20:23)
[2019-10-27] MEDS: ATORVASTATIN 10 MG TABLET PO SCH (20:31)
[2019-10-27] MEDS ORDERED: LOTEPREDNOL ETABONATE RIGHTEYE SCH (21:00)
[2019-10-28] MEDS: ACETAMINOPHEN 1,000 MG/100 ML 100 ML IV SCH ×4 (01:50→20:40)
[2019-10-28] MEDS: SODIUM CHLORIDE FLUSH 0.9% 10 ML SYRINGE IVP SCH ×2 (01:50→17:38)
[2019-10-28] MEDS: PIPERACILLIN/TAZOBACTAM 3.375 GM in SODIUM CHLORIDE 0.9% MINIBAG 100 ML IV SCH ×3 (05:36→18:14)
[2019-10-28] MEDS: metroNIDAZOLE 500 MG/100 ML 500 MG/100 ML BAG IV SCH ×3 (06:28→21:44)
[2019-10-28] MEDS: PANTOPRAZOLE 40 MG VIAL IVP SCH (06:29)
[2019-10-28] MEDS: SODIUM CHLORIDE FLUSH 0.9% 10 ML SYRINGE IVP PRN (06:29)
[2019-10-28] MEDS: TIMOLOL EYE DROP RIGHTEYE SCH ×2 (08:38→20:17)
[2019-10-28] MEDS: LOTEPREDNOL ETABONATE RIGHTEYE SCH (08:39)
[2019-10-28] MEDS: LOSARTAN 50 MG TABLET PO SCH (08:42)
[2019-10-28] MEDS: ENOXAPARIN 40 MG/0.4 ML SYRINGE SUBQ SCH (08:42)
--- NOTE | 2019-10-28 09:00 | PROVIDER PROGRESS NOTE ---
Subjective - General Admit Date: 10/26/19 Procedure Date: 10/26/19 Post Op Days: 2 Procedure Performed: Laparoscopic Appendectomy with drain placement - Review of Systems Wound/Incisions: positive: Healing well Drain Type: Hardeep Drain Output Description: approx 60 ccs since OR - cloudy and sanguinous General: positive: Fever, Appetite. negative: Malaise, Chills HEENT: positive: No symptoms Pulmonary: positive: No symptoms, Pleuritic chest pain Gastrointestinal: negative: Nausea, Vomiting Genitourinary: positive: No symptoms Musculoskeletal: positive: No symptoms Skin: positive: No symptoms All Other Systems: positive: Reviewed and negative (or covered in HPI/PMH) - Other Other Information/Narrative: An episode of nausea this AM but no vomiting. Has not tolerated much po. Pain is reasonably well controlled and she is taking fluid orally. Objective - Patient Data Reviewed Vital Signs: Yes Vital Signs: Vital Signs x48h Temp Pulse Resp BP Pulse Ox 10/28/19 08:17 37.2 C 85 18 144/63 H 91 L Weight: Weight 10/26/19 10/27/19 10/28/19 23:59 23:59 23:59 Weight (kg) 64.41 kg Intake & Output: Intake and Output Totals x24h 10/26/19 10/27/19 10/28/19 23:59 23:59 23:59 Intake Total 1490 6252.083 922.916 Output Total 290 130 20 Balance 1200 6122.083 902.916 - Lab Results Lab Results: 10/27/19 05:00 10/27/19 05:00 - Current Medications Current Medications: Current Medications Generic Name Dose Route Start Last Admin Trade Name Freq PRN Reason Stop Dose Admin Atorvastatin Calcium 20 mg 10/27/19 21:00 10/27/19 20:31 Lipitor PO 20 mg QPM AYUSH Administration Enoxaparin Sodium 40 mg 10/27/19 09:00 10/28/19 08:42 Lovenox SUBQ 40 mg DAILY AYUSH Administration Metronidazole 500 mg in 100 mls @ 100 mls/hr 10/26/19 14:00 10/28/19 07:28 Flagyl 500 Mg/100 Ml IV Infused Q8HR AYUSH Infusion Acetaminophen 100 mls @ 400 mls/hr 10/26/19 14:00 10/28/19 08:39 Ofirmev IV 400 mls/hr Q6H AYUSH Administration Piperacillin Sod/Tazobactam 100 mls @ 200 mls/hr 10/26/19 18:00 10/28/19 06:06 Sod 3.375 gm/ Sodium Chloride IV Infused Q6HR AYUSH Infusion Ketorolac Tromethamine 15 mg 10/26/19 13:16 10/27/19 18:58 Toradol Inj (15mg) IVP 10/31/19 13:15 15 mg Q6H PRN Administration PAIN Losartan Potassium 50 mg 10/28/19 09:00 10/28/19 08:42 Cozaar PO 50 mg DAILY AYUSH Administration Ondansetron HCl 4 mg 10/26/19 13:16 10/28/19 05:59 Zofran Inj IVP 4 mg Q6H PRN Administration Nausea / Vomiting Timolol Eye Drop 1 each 10/27/19 21:00 10/28/19 08:38 RIGHTEYE 1 each BID AYUSH Administration Loteprednol 1 each 10/28/19 09:00 10/28/19 08:39 Etabonate RIGHTEYE 1 each DAILY AYUSH Administration Sodium Chloride 10 ml 10/26/19 17:00 10/28/19 01:50 Normal Saline Flush 0.9% IVP 10 ml 0100,0900,1700 AYUSH Administration Sodium Chloride 10 ml 10/26/19 13:12 10/28/19 06:29 Normal Saline Flush 0.9% IVP 10 ml PRN PRN Administration NEEDED PER PROVIDER ORDERS - Physical Exam Wound/Incisions: positive: No drainage General Appearance: positive: No acute distress, Alert Eyes Bilateral: positive: Normal inspection, PERRL, EOMI ENT: positive: ENT inspection nml, Pharynx nml Neck: positive: Nml inspection Respiratory: positive: Chest non-tender, No respiratory distress Cardiovascular: positive: Regular rate & rhythm Abdomen: positive: Other (Appropriately tender to palpation. Hypoactive bowel sounds. Wounds are clean and well approximated. No erythema or drainage) Back: positive: Nml inspection Skin: positive: Color nml, No rash Neurologic/Psychiatric: positive: Oriented x3 Impression/Plan - Problem List Problem List: 1. Concern for developing ileus - will start scheduled Reglan 2. Hep lock IV as she is taking adequate oral fluids 3. Continue IV antibiotics - drain contents are still cloudy but improving. 4. Encourage ambulation
[2019-10-28] MEDS ORDERED: NEOSTIGMINE 1 MG/1 ML 10 ML MDV IVP ONE (09:14)
[2019-10-28] MEDS ORDERED: PROPOFOL 200 MG/20 ML VIAL IVP ONE (09:14)
[2019-10-28] MEDS ORDERED: HYDROmorphone 1 MG/ML SYRINGE IVP ONE (09:14)
[2019-10-28] MEDS ORDERED: GLYCOPYRROLATE 1 MG/5 ML VIAL IVP ONE (09:14)
[2019-10-28] MEDS ORDERED: MIDAZOLAM 2 MG/2 ML VIAL IVP ONE (09:14)
[2019-10-28] MEDS ORDERED: ROCURONIUM 50 MG/5 ML VIAL IVP ONE ×2 (09:14)
[2019-10-28] MEDS: METOCLOPRAMIDE 10 MG/2 ML VIAL IVP SCH ×2 (11:55→17:38)
[2019-10-28] MEDS: ATORVASTATIN 10 MG TABLET PO SCH (20:18)
[2019-10-29] MEDS: PIPERACILLIN/TAZOBACTAM 3.375 GM in SODIUM CHLORIDE 0.9% MINIBAG 100 ML IV SCH ×3 (00:25→12:55)
[2019-10-29] MEDS: METOCLOPRAMIDE 10 MG/2 ML VIAL IVP SCH ×3 (00:25→12:10)
[2019-10-29] MEDS: SODIUM CHLORIDE FLUSH 0.9% 10 ML SYRINGE IVP SCH ×2 (02:08→08:26)
[2019-10-29] MEDS: ACETAMINOPHEN 1,000 MG/100 ML 100 ML IV SCH ×3 (02:11→12:10)
[2019-10-29] MEDS: SODIUM CHLORIDE FLUSH 0.9% 10 ML SYRINGE IVP PRN (05:30)
[2019-10-29] MEDS: metroNIDAZOLE 500 MG/100 ML 500 MG/100 ML BAG IV SCH (06:07)
[2019-10-29] MEDS ORDERED: PANTOPRAZOLE 40 MG TABLET PO SCH (07:00)
[2019-10-29] MEDS: ENOXAPARIN 40 MG/0.4 ML SYRINGE SUBQ SCH (08:26)
[2019-10-29] MEDS: LOSARTAN 50 MG TABLET PO SCH (08:26)
[2019-10-29] MEDS: LOTEPREDNOL ETABONATE RIGHTEYE SCH (08:28)
[2019-10-29] MEDS: TIMOLOL EYE DROP RIGHTEYE SCH (08:28)
--- NOTE | 2019-10-29 13:08 | Discharge Plan ---
Discharge Plan Problem Reviewed?: Yes Disposition: Home, Self Care Condition: Stable Diet: Regular Activity Restrictions: Do not lift more than 10 pounds Shower Restrictions: No Driving Restrictions: Yes (2 weeks) Plan of Treatment: Rest, supportive care, antibiotics, drain management Assessment: Acute appendicitis with perforation and peritonitis - Significantly improved and continuing to improve No Smoking: If you smoke, Please STOP! Call for help. Follow-up with: Keith Tena [Primary Care Provider] - George Duran MD [Provider Admit Priv/Credential] - (Surgical clinic nurse follow up on Monday for drain removal)
--- NOTE | 2019-10-29 13:10 | DISCHARGE SUMMARY ---
"Discharge Summary Admit Date: 10/26/19 Discharge Date: 10/29/19 Discharging Provider: Roger Primary Care Provider: Darinel Code Status: Attempt Resuscitation Discharge Disposition: 01 Home, Self Care - DIAGNOSES Admission Diagnoses: Acute appendicitis with perforation and peritonitis Discharge Diagnoses with Status of Each Condition: Acute appendicitis with peritonitis - improving - HPI History of Present Illness: 74 yo female with sudden onset of severe generalized sharp stabbing abd pain, worse on the right side, which began at 2230 hrs yesterday evening. There was nausea but no vomiting, no fever, chills, change in bowel habits, melena, hematochezia, respiratory or urinary sx. She believes she may have had a milder episode approx 5 months ago which resolved spontaneously over 48 hours. Pain is better when she lies still. No recent wt loss. +FH CRC in father in his 80s. Her most recent colonoscopy was approximately one year ago where diverticulosis was noted. Her pain has improved somewhat since arrival in the ER at approx 0200, and now is described as a dull ache. Evaluation in the ER was notable for nl CBC, CMP, and UA and abd/pelvic CT showing an enlarged, inflamed distal appendix measuring 13 mm in size, along with a 2.7 cm left cystic adnexal mass for which f/u US was recommended. Surgical consultation was requested. - CONSULTS | PROCEDURES Consultations: Hospitalist Procedures: Laparoscopic Appendectomy with drain placement - HOSPITAL COURSE Hospital Course: Neelam was seen in the ED with initial concern regarding a heart murmur. ECHO cardiogram revealed volume contraction and hyperdynamic contraction. She was given fluid resuscitation in the ED and then taken to the operating room for laparoscopic appendectomy. At the time of operation , she was noted to have diffused peritonitis and ruptured appendicitis. Appendectomy was completed and intraperitoneal drain was left in place. The patient was taken the med/surg unit for supportive care, antibiotic therapy, continued resuscitation, pain control, and drain management. She has improved as expected. Today she is walking the halls unassisted, tolerating a regular diet, and her pain is controlled with acetaminophen and ibuprofen. She is being discharged to her home in the care of her family with her drain in place. We will see her back in the clinic on Monday for a nurse visit to remove the drain. - ALLERGIES Allergies/Adverse Reactions: Allergies Allergy/AdvReac Type Severity Reaction Status Date / Time No Known Drug Allergies Allergy Verified 10/26/19 02:25 - MEDICATIONS Home Medications: Ambulatory Orders Medication Instructions Recorded Confirmed Calcium Carbonate [Tums (Calcium 500 mg PO DAILY 10/26/19 10/26/19 Carbonate 500mg)] Cholecalciferol (Vitamin D3) 2,000 units PO DAILY 10/26/19 10/26/19 [Vitamin D3] Ibuprofen 200 mg PO QPM PRN 10/26/19 10/26/19 Losartan [Cozaar] 50 mg PO DAILY 10/26/19 10/26/19 Simvastatin 40 mg PO DAILY 10/26/19 10/26/19 Fluticasone [Flonase] 1 spray CINDY DAILY 10/27/19 10/27/19 Loteprednol Etabonate 1 drops RIGHTEYE BID 10/27/19 10/27/19 Timolol 0.5% Ophth Drops [Timoptic 1 drops RIGHTEYE BID 10/27/19 10/27/19 0.5% Ophth Drops] Amox/Clav 875/125 [Augmentin] 1 each PO Q12H #7 tablet 10/29/19 - PHYSICAL EXAM AT DISCHARGE General Appearance: positive: No acute distress, Alert Eyes Bilateral: positive: Normal inspection, PERRL, EOMI ENT: positive: ENT inspection nml, Pharynx nml, No signs of dehydration Neck: positive: Nml inspection, Thyroid nml, No JVD Respiratory: positive: Chest non-tender, No respiratory distress, Breath sounds nml Cardiovascular: positive: Regular rate & rhythm. negative: No murmur Peripheral Pulses: positive: 0 Abdomen: positive: Other (soft, appropriately tender, active bowel sounds; drainage is serous and clearing) Back: positive: Nml inspection Skin: positive: Color nml, No rash - LABS Result Diagrams: 10/27/19 05:00 10/27/19 05:00 - QUALITY (Female Hip Fx Only) Was patient sent home on osteoporosis medication?: No - FOLLOW UP Follow Up: Monday with surgical nurse for drain removal [address] Duran - TIME SPENT Time Spent in Discharge (Minutes): 25"
[2019-10-29 13:59] VITALS: BP 146/73
== END 2019-10-29 14:10 | disposition home or self-care (01) | DRG 343 ==
LOC: ED 02:15 → SDS 09:57 → MS2 13:12
PROVIDERS: ADMIT Surgery; ATTEND Surgery
PROC: 0DTJ4ZZ Resection of Appendix, Percutaneous Endoscopic Approach (ICD-10-PCS; principal; 2019-10-26 11:00)
DX: K37 Unspecified appendicitis (principal); I10 Essential (primary) hypertension; E78.00 Pure hypercholesterolemia, unspecified; K35.20 Acute appendicitis with generalized peritonitis, without abscess; R01.1 Cardiac murmur, unspecified; I11.9 Hypertensive heart disease without heart failure; E78.5 Hyperlipidemia, unspecified; K57.30 Diverticulosis of large intestine without perforation or abscess without bleeding; Z87.891 Personal history of nicotine dependence; Z79.1 Long term (current) use of non-steroidal anti-inflammatories (NSAID)
CPT/HCPCS: 36415; 71046; 74177; 80053; 81001; 83690; 85025; 93005; 93308; 96365; 99285; A9270; J0131; J1170; J1650; J2765; J7120; Q9967; 81003; 87086

== ENCOUNTER 2024-01-01 10:51 | Outpatient (CLI) | payer MEDICARE ==
--- NOTE | 2024-01-04 11:01 | Mammography Report ---
BILATERAL DIGITAL SCREENING MAMMOGRAM 3D/2D: 01/01/2024 CLINICAL: Routine screening. Family history of breast cancer. No prior exams were available for comparison. There are scattered areas of fibroglandular density in both breasts (category b / 25%-50% glandular t issue). There is a cluster of focal asymmetries in the right breast at 10 o'clock middle depth. There is a focal asymmetry in the left breast at 9 o'clock in the retroareolar region. There also is a cluster of enlarged lymph nodes in the left breast posterior depth superior region se en on the mediolateral oblique view only. No other significant masses or calcifications are seen in either breast. IMPRESSION: INCOMPLETE: NEEDS ADDITIONAL IMAGING EVALUATION The cluster of focal asymmetries in the right breast at 10 o'clock middle depth is indeterminate. Ad ditional views with possible ultrasound are recommended. The focal asymmetry in the left breast at 9 o'clock in the retroareolar region is indeterminate. Add itional views with possible ultrasound are recommended. The cluster of enlarged lymph nodes in the left breast posterior depth superior region seen on the me diolateral oblique view only is indeterminate. An ultrasound is recommended. Based on the Tyrer Cuzick model (a risk assessment model) the patient's lifetime risk is 7.4% and her 10 year risk is 0.0%. According to the ACR, ACS, and NCCN guidelines, an annual breast MRI exam chaitanya g with mammogram is recommended if the patient's lifetime risk is 20% or greater. This exam was interpreted at Station ID: [id number]. NOTE: For mammograms, a report in lay terms will be sent to the patient. Approximately 15% of breast malignancies will not be visualized mammographically. In the management of a palpable breast mass, a negative mammogram must not discourage biopsy of a clinically suspicious lesion. Electronically Signed By: Linnette Thompson M.D. lk/:01/03/2024 11:34:23 ACR BI-RADS Category 0: Incomplete 3340F PARENCHYMAL PATTERN: (A) - The breast(s) demonstrate(s) scattered fibroglandular densities. BI-RADS CATEGORY: (0) - 0 Mammo and [place] [id number] Immediate follow-up LATERALITY: (B)
== END 2024-01-01 10:52 | disposition home or self-care (01) ==
LOC: DI.S 10:51
DX: Z12.31 Encounter for screening mammogram for malignant neoplasm of breast (principal); Z80.3 Family history of malignant neoplasm of breast; R92.323 Mammographic fibroglandular density, bilateral breasts; R92.8 Other abnormal and inconclusive findings on diagnostic imaging of breast; R59.0 Localized enlarged lymph nodes

== ENCOUNTER 2024-02-07 09:40 | Outpatient (CLI) | payer MEDICARE ==
--- NOTE | 2024-02-08 10:23 | Ultrasound Report ---
LIMITED ULTRASOUND OF LEFT BREAST AND AXILLA: 02/07/2024 CLINICAL: Patient returns today to evaluate a focal asymmetry in the left breast. Comparison is made to exams dated: 02/07/2024 mammogram and 01/01/2024 mammogram - [facility]. Color flow ultrasound of the left breast retroareolar and axilla regions was performed. Ornelas scale images of the real-time examination were reviewed. No significant axillary or breast finding on ultrasound. IMPRESSION: PROBABLY BENIGN There is no abnormality seen in the left breast to correspond with the mammography finding in the sub -areolar depth and slightly inferior to the breast. The mammography finding is probably benign. A follow-up mammogram in 6 months is recommended to demonstrate stability. Normal morphology axillary lymph nodes are seen on ultrasound, benign. This exam was interpreted at Station ID: [id number]. Electronically Signed By: Luis Daniel Miranda M.D. lc/:02/07/2024 10:57:49 Ultrasound BI-RADS: 3 Probably benign BI-RADS CATEGORY: (3) - 3 Mammogram [id number] 6 month follow-up LATERALITY: (B)
--- NOTE | 2024-02-08 10:23 | Ultrasound Report ---
LIMITED ULTRASOUND OF RIGHT BREAST: 02/07/2024 CLINICAL: Patient returns today to evaluate a focal asymmetry in the right breast. Comparison is made to exams dated: 02/07/2024 mammogram and 01/01/2024 mammogram - [facility]. Color flow ultrasound of the right breast 9-10 o'clock region was performed. There is a possible 0.3 cm x 0.4 cm x 0.4 cm lymph node in the right breast at 9 o'clock middle depth 8 cm from the nipple. IMPRESSION: PROBABLY BENIGN The possible 0.3 cm x 0.4 cm x 0.4 cm lymph node in the right breast is probably benign, correspondin g to at least one of the cluster of focal asymmetries in this region on mammogram. A follow-up mammogram and an ultrasound in 6 months is recommended to demonstrate stability. This exam was interpreted at Station ID: [id number]. Electronically Signed By: Luis Daniel Miranda M.D. lc/:02/07/2024 10:55:50 Ultrasound BI-RADS: 3 Probably benign BI-RADS CATEGORY: (3) - 3 Mammo and US [id number] 6 month follow-up LATERALITY: (B)
--- NOTE | 2024-02-08 10:23 | Mammography Report ---
BILATERAL DIGITAL DIAGNOSTIC MAMMOGRAM 3D/2D WITH SPOT COMPRESSION: 02/07/2024 Comparison is made to exam dated: 01/01/2024 mammogram - [facility]. There are scattered areas of fibroglandular density in both breasts (category b / 25%-50% glandular t issue). There is a cluster of focal asymmetries in the right breast at 10 o'clock middle depth. There is a focal asymmetry in the left breast at 9 o'clock anterior depth. There also is a possible cluster of lymph nodes in the left breast posterior depth superior region se en on the mediolateral oblique view only. No other significant masses or calcifications are seen in either breast. IMPRESSION: INCOMPLETE: NEEDS ADDITIONAL IMAGING EVALUATION The cluster of focal asymmetries in the right breast at 10 o'clock middle depth is indeterminate. An ultrasound is recommended. The focal asymmetry in the left breast at 9 o'clock anterior depth is indeterminate. An ultrasound i s recommended. The possible cluster of lymph nodes in the left breast posterior depth superior region seen on the me diolateral oblique view only is indeterminate. An ultrasound is recommended. Based on the Tyrer Cuzick model (a risk assessment model) the patient's lifetime risk is 7.4% and her 10 year risk is 0.0%. According to the ACR, ACS, and NCCN guidelines, an annual breast MRI exam chaitanya g with mammogram is recommended if the patient's lifetime risk is 20% or greater. This exam was interpreted at Station ID: [id number]. NOTE: For mammograms, a report in lay terms will be sent to the patient. Approximately 15% of breast malignancies will not be visualized mammographically. In the management of a palpable breast mass, a negative mammogram must not discourage biopsy of a clinically suspicious lesion. Electronically Signed By: Luis Daniel Miranda M.D. lc/:02/07/2024 10:54:33 ACR BI-RADS Category 0: Incomplete 3340F PARENCHYMAL PATTERN: (A) - The breast(s) demonstrate(s) scattered fibroglandular densities. BI-RADS CATEGORY: (0) - 0 Ultrasound [id number] Immediate follow-up LATERALITY: (B)
== END 2024-02-07 09:41 | disposition home or self-care (01) ==
LOC: DI 09:40
PROVIDERS: ATTEND Internal Medicine
DX: R92.8 Other abnormal and inconclusive findings on diagnostic imaging of breast (principal); R92.323 Mammographic fibroglandular density, bilateral breasts; Z80.3 Family history of malignant neoplasm of breast

== ENCOUNTER 2024-04-16 11:53 | Day surgery (SDC) | payer MEDICARE ==
--- NOTE | 2024-04-16 06:56 | HISTORY & PHYSICAL EXAMINATION ---
PMH/PSH - Past Medical History Cardiovascular: positive: Hypertension, High cholesterol Respiratory: positive: Other Neuro: positive: None Endocrine/Autoimmune: positive: None GI: positive: Hiatal hernia : positive: None HEENT: positive: Chronic vision loss, Macular degeneration, Other Psych: positive: None Musculoskeletal: positive: Other Derm: positive: None MRSA Hx?: No - Past Surgical History General: positive: Appendectomy, Hiatal hernia repair, Colonoscopy /[employer]: positive: Other HEENT: positive: Cataracts, Other Social & Family Hx - Social History Does the pt smoke?: No Smoking Status: Former smoker Does the pt drink ETOH?: Yes Does the pt have substance abuse?: No - POLST Patient has POLST: No Meds/Allgy - Home Medications Home Medications: Ambulatory Orders Medication Instructions Recorded Confirmed Cholecalciferol (Vitamin D3) 2,000 units PO DAILY 10/26/19 10/26/19 [Vitamin D3] Ibuprofen 200 mg PO QPM PRN 10/26/19 10/26/19 Losartan [Cozaar] 50 mg PO DAILY 10/26/19 10/26/19 Simvastatin 40 mg PO DAILY 10/26/19 10/26/19 Fluticasone [Flonase] 1 spray CINDY DAILY 10/27/19 10/27/19 Loteprednol Etabonate 1 drops RIGHTEYE BID 10/27/19 10/27/19 Timolol 0.5% Ophth Drops [Timoptic 1 drops RIGHTEYE BID 10/27/19 10/27/19 0.5% Ophth Drops] - Allergies Allergies/Adverse Reactions: Allergies Allergy/AdvReac Type Severity Reaction Status Date / Time No Known Drug Allergies Allergy Verified 04/15/24 13:38 Impression/Plan - Problem List Problem List: History of Present Illness: 79 year old female referred for screening CS exam. She has a FH of colon cancer (Father) and a personal history of colon polyps.. Her last CS examination was 5 years ago. Mallampati Score Class I: The soft palate, tonsils, anterior and posterior pillars, and the entire uvula are easily visible ASA Physical Status Classification System ASA II: A patient with mild systemic disease Allergies: Allergies Reviewed: Done * WEEDS, GRASSES, MOLDS, POLLEN (Critical) Social History Reviewed: Done Medications: Meds Reviewed: Done losartan 100 mg tablet (losartan) Take 1 tablet by mouth once a day cholecalciferol (vitamin D3) 50 mcg (2,000 unit) capsule (cholecalciferol (vitamin d3)) 1 once a day simvastatin 40 mg tablet (simvastatin) Take 1 tablet by mouth once a day * fluticasone furoate 27.5 mcg/actuation spray,suspension (fluticasone furoate) 1 twice a day * timolol 0.5% drops (timolol) Instill 1 drop into right eye twice a day PreserVision AREDS-2 250-90-40-1 mg capsule (vit c,v-ws-qfgan-lutein-zeaxan) 2 once a day * Tylenol PM Extra Strength 25-500 mg tablet (diphenhydramine-acetaminophen) 1 once a day loteprednol etabonate 0.5% drops,suspension (loteprednol etabonate) Problems: Problems Reviewed: Done Colonic polyps (ICD-211.3) (LMH35-W13.5) Family history of breast cancer (VQJ07-U71.3) Mammogram, abnormal, bilateral (ICD-793.80) (KPI00-J66.8) Health screening (ICD-V70.0) (CJL94-F62.9) Appendicitis, acute, with peritonitis (ICD-540.0) (EXP92-P21.20) Hx of hiatal hernia (ICD-V12.79) (RZL04-G83.19) High cholesterol (ICD-272.0) (QBA17-E52.70) Hypertension (ICD-401.9) (GHS53-L86) Past Medical History: Hypertension High cholesterol CPAP machine frequent indigestion heartburn acid reflux hiatal hernia Past Surgical History: Laparascopic sterilization hiatal hernia repair cataracts, cornea surgeries appendectomy Risk Factors-CCC: Smoked Tobacco Use: Former smoker Year Quit: 1975 Years Since Last Quit: 50 Smokeless Tobacco Use: Never Vaping / e-cigarette use: Never Passive Smoke Exposure: yes Alcohol Use: yes Type: white wine Drinks per day: 2 Drug Use: no Marijuana Use: no Review of Systems General Denies fever, anorexia and weight loss. GI Denies abdominal pain, nausea, vomiting, diarrhea, constipation, change in bowel habits, melena, hematochezia, jaundice, gas/bloating, indigestion/he artburn, dysphagia and odynophagia. Breast Denies left breast lump, right breast lump, nipple discharge, bloody discharge from nipple, breast pain, abnormal mammogram and breast enlargement. CV Denies chest pains, palpitations, syncope and peripheral edema. Resp Denies cough, shortness of breath, hemoptysis, wheezing and pleuritic chest pain. Vascular Denies varicose veins, leg swelling, leg redness, leg coolness, pain in legs with walking, resting leg pain, pain at night in legs and blue toe(s). Denies vaginal discharge, incontinence, dysuria, hematuria, urinary frequency, abnormal vaginal bleeding, pelvic pain and . Wound Denies wound redness, wound discharge, wound pain, opening of wound, purulent discharge and bleeding from wound. Derm Denies suspicious lesions, new skin lesions, changing mole(s), rash, itching and history of skin cancer. Neuro Denies paralysis, paresthesias, seizures and frequent headaches. Psych Denies depression, anxiety, memory loss, suicidal ideation, hallucinations, paranoia, phobia and confusion. Endo Denies cold intolerance, heat intolerance, polydipsia, polyphagia, polyuria and unusual weight change. Heme Denies abnormal bruising, bleeding and enlarged lymph nodes. MS Denies back pain, sciatica and arthritis. Other Denies stoma redness, pain around stoma, discharge from stoma, pain from venous catheter, redness at vascular access site and purulent drainage from vascular access site. Vital Signs: Patient Profile: 79 Years Old Female Height: 61 inches Weight: 135 pounds BMI: 25.60 Temp: 97.6 degrees F oral Pulse rate: 81 / minute Resp: 20 per minute BP sittin / 80 Vitals Entered By: Vida Saldivar RN (February 26, 2024 10:37 AM) Problems were reviewed with the patient during this visit. Medications were reviewed with the patient during this visit. Allergies were reviewed with the patient during this visit. Allergies: * WEEDS, GRASSES, MOLDS, POLLEN (Critical) Physical Exam General: well developed, well nourished, in no acute distress Head: normocephalic and atraumatic Eyes: PERRLA/EOM intact; conjunctiva and sclera clear Ears: Normal hearing Nose: no deformity, discharge, inflammation, or lesions Mouth: no deformity or lesions with good dentition Neck: no masses, thyromegaly, or abnormal cervical nodes Lungs: clear bilaterally to A & P Heart: regular rate and rhythm, S1, S2 without murmurs, rubs, gallops, or clicks Abdomen: bowel sounds positive; abdomen soft and non-tender without masses, organomegaly, or hernias noted Msk: no deformity or scoliosis noted with normal posture and gait Pulses: pulses normal in all 4 extremities Extremities: no clubbing, cyanosis, edema, or deformity noted with normal full range of motion of all joints Neurologic: no focal deficits Skin: intact without lesions or rashes Psych: alert and cooperative; normal mood and affect; normal attention span and concentration Blood Pressure: Today's BP: 145/80 mmHg Impression & Recommendations: Problem # 1: Colonic polyps (ICD-211.3) (TQU56-N52.5) Assessment: FH colon cancer; personal histoy colon polyos Plan: Colonoscopy under monitored sedation Consent: Yanely has been counseled for the procedure, it's indications, risks, benefits and expected outcome as well as alternative therapies. We specifically discussed risks associated with anesthesia and insertion of the endoscope into the large intestine which includes bleeding and injury to the colon which may require surgical intervention. Yanely understands, agrees, and consents to the proposed operative strategy and requests that we proceed with the procedure as outlined in our discussion. Dusty Murcia MD, [facility] General Surgery Service Date: 04/16/2024; 12:30 Chart Update: Patient examined, chart reviewed. There are no changes to the patient's clinical status that would preclude proceeding with the scheduled procedure today. Dusty Murcia MD, [facility] General Surgery Service
[2024-04-16] MEDS: LACTATED RINGERS 1,000 ML IV ONE ×2 (12:00→14:45)
[2024-04-16] MEDS ORDERED: PROPOFOL 200 MG/20 ML VIAL IVP ONE (12:52)
[2024-04-16] MEDS ORDERED: LIDOCAINE-MPF 2% 5 ML VIAL ONE (12:53)
[2024-04-16] MEDS ORDERED: PROPOFOL 500 MG/50 ML 500 MG/50 ML VIAL ONE (12:54)
--- NOTE | 2024-04-16 14:03 | ANESTHESIA POST OP EVALUATION ---
Anesthesia Post Eval - Post Anesthesia Eval Vitals: Last Vital Signs Temp 36.4 C L 04/16/24 12:09 Pulse 73 04/16/24 12:09 Resp 16 04/16/24 12:09 BP 174/69 H 04/16/24 12:09 Pulse Ox 97 04/16/24 12:09 O2 Flow Rate CV Function Including HR & BP: Stable Pain Control: Satisfactory Nausea & Vomiting: Negative Mental Status: Baseline Respiratory Status: Airway Patent Hydration Status: Satisfactory Anesthesia Complications: None
--- NOTE | 2024-04-16 14:05 | ANESTHESIA ---
Pre-Anesthesia VS, & Labs - Diagnosis screening - Procedure colonoscopy Vital Signs: Temp Pulse Resp BP Pulse Ox O2 Flow Rate 36.4 C L 73 16 174/69 H 97 04/16/24 12:09 04/16/24 12:09 04/16/24 12:09 04/16/24 12:09 04/16/24 12:09 Height: 5 ft 1 in Weight (kg): 61.6 kg Body Mass Index: 25.6 BMI Classification: Overweight - NPO Other (prep as directed) - Is Patient ?: No Home Medications and Allergies Cholecalciferol (Vitamin D3) [Vitamin D3] 2,000 units PO DAILY 10/26/19 Ibuprofen 200 mg PO QPM PRN 10/26/19 Losartan [Cozaar] 50 mg PO DAILY 10/26/19 Simvastatin 40 mg PO DAILY 10/26/19 Fluticasone [Flonase] 1 spray CINDY DAILY 10/27/19 Loteprednol Etabonate 1 drops RIGHTEYE BID 10/27/19 Timolol 0.5% Ophth Drops [Timoptic 0.5% Ophth Drops] 1 drops RIGHTEYE BID 10/27/19 Allergies/Adverse Reactions: Allergies Allergy/AdvReac Type Severity Reaction Status Date / Time No Known Drug Allergies Allergy Verified 04/15/24 13:38 Anes History & Medical History - Anesthetic History Anesthesia Complications: reports: No previous complications - Medical History Cardiovascular: reports: Hypertension, High cholesterol Pulmonary: reports: Other Gastrointestinal: reports: Hiatal hernia Urinary: reports: None Neuro: reports: None Musculoskeletal: reports: Other Endocrine/Autoimmune: reports: None Blood Disorders: reports: None Skin: reports: None Smoking Status: Former smoker - Surgical History General: reports: Appendectomy, Hiatal hernia repair, Colonoscopy Eyes Ears Nose Throat (EENT): reports: Cataracts, Other Gynecologic: reports: Other Exam General: Alert, Oriented x3 Dental: WNL Mouth Opening: Greater than 4 Fingerbreadths Neck Mobility: Normal Mallampati classification: II Thyromental Distance: greater than 6 cm Respiratory: Lungs clear Cardiovascular: Other (irregular, chronic AF) Plan Anesthesia Type: Total IV Consent for Procedure(s) Verified and Reviewed: Yes Code Status: Attempt Resuscitation ASA classification: 3-Severe systemic disease Is this case an emergency?: No
[2024-04-16 14:12] LABS: HGB - HEMOGLOBIN 12.9 g/dL (12.0-16.0)
--- NOTE | 2024-04-16 14:43 | PROVIDER PROGRESS NOTE ---
Progress Note General Surgery Progress Note The patient feels well after her CS exam. She understands that she has significant diverticulosis of the sigmoid colon and inflammation of the mucosa of the right colon. This area was biopsied. Her H&H post-procedure is 12.9/39.0. She has not had recent melena or rectal blood loss. She understands that no polyps or cancers were identified. I recommend that she be discharged to home and begin her general diet as usual. Given her age, screening colonoscopy examinations are no longer indicated although if she insisted and met all clinical criteria for the examination, the next one need be no sooner than 5 years from now. We will contact her with the results of the right colon mucosal biopsies when they are available. As she is asymptomatic, no intervention is required at this point in time. Italo Murcia MD, FACS General Surgery Service
[2024-04-16 14:54] VITALS: BP 145/66; O2SAT 98
== END 2024-04-16 11:54 | disposition home or self-care (01) ==
LOC: SDS 11:53
PROVIDERS: ATTEND Surgery
PROC: 0DBF8ZX Excision of Right Large Intestine, Via Natural or Artificial Opening Endoscopic, Diagnostic (ICD-10-PCS; principal; 2024-04-16 13:00)
DX: Z12.11 Encounter for screening for malignant neoplasm of colon (principal); K52.9 Noninfective gastroenteritis and colitis, unspecified; K57.31 Diverticulosis of large intestine without perforation or abscess with bleeding; Z80.0 Family history of malignant neoplasm of digestive organs; Z87.891 Personal history of nicotine dependence
CPT/HCPCS: 36415; 45380; 85014; 85018; J7120